=== PATIENT | female | born 2000 | race Caucasian/White ===

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

== ENCOUNTER 2021-01-05 09:37 | Outpatient (REF) | payer MEDICAID, SELFPAY | END 2021-01-05 09:38 | disposition home or self-care (01) | LOC: HO.LAB 09:37 | PROVIDERS: Visit Provider Internal Medicine | DX: Z20.822 Contact with and (suspected) exposure to COVID-19 (principal) | CPT/HCPCS: 36415; C9803; U0003; U0005 ==

== ENCOUNTER 2021-02-05 07:59 | Outpatient (REF) | payer OTHER, MEDICAID, SELFPAY ==
--- NOTE | ~2021-02-05 | CT_ITS ---
EXAMINATION: CT HEAD WITHOUT CONTRAST CLINICAL INFORMATION: Head injury COMPARISON: None TECHNIQUE: Contiguous axial imaging was performed from the skull base to vertex without intravenous administration of contrast. This CT examination was performed using dose optimization techniques as appropriate, variously including the following: *Automated exposure control *Adjustment of mA and/or kV according to patient size (this includes techniques or standardized protocols for targeted exams where dose is matched to indication/reason for exam; i.e. extremities or head) *Use of iterative reconstruction technique DLP: 610 mGy-cm FINDINGS: There is no evidence of acute intracranial hemorrhage or territorial infarction. No abnormal mass effect or midline shift is seen. Ac to white matter differentiation is well preserved. No extra-axial fluid collections are identified. The ventricles are normal in size. There is no abnormal attenuation within the brain parenchyma. The osseous structures and soft tissues are normal. The mastoid air cells and visualized portions of the paranasal sinuses are well aerated. CT/CT head/brain wo con IMPRESSION: Unremarkable exam.
== END 2021-02-05 08:00 | disposition home or self-care (01) ==
LOC: HO.CT 07:59
PROVIDERS: Visit Provider Emergency Medicine
DX: S09.90XA Unspecified injury of head, initial encounter (principal); V87.7XXA Person injured in collision between other specified motor vehicles (traffic), initial encounter
CPT/HCPCS: 70450

== ENCOUNTER 2021-05-18 09:28 | Outpatient (REF) | payer MEDICAID, SELFPAY ==
[2021-05-18 14:30] LABS: Glucose Urine UA NEG (NEG); Leukocyte Esterase Urine NEG (NEG); Nitrite Urine POS (NEG); Specific Gravity - Urine 1.025 (1.005-1.025); Urine Blood NEG (NEG); Urine Ketones NEG (NEG); Urine Protein NEG (NEG-TRACE)
[2021-05-18 14:44] LABS: Appearance Urine HAZY; Color Urine YELLOW
[2021-05-18 14:47] LABS: Bacteria Urine 3+ /LPF; RBC Urine 0-2 /HPF (0); Squamous Epithelial Cell Urine 2+ /LPF
[2021-05-19 02:42] LABS: CT PCR NOT DETECTED (Not Detect.); NG PCR NOT DETECTED (Not Detect.)
[2021-05-19 08:14] LABS: Syphilis Screen Nonreactive (Nonreactive)
[2021-05-19 08:17] LABS: HIV AB/AG Nonreactive (Nonreactive); HIV Num 1 0.06 S/CO (0.00-0.99); Hepatitis B Surface Antigen Negative (Negative)
[2021-05-19 08:34] LABS: ~HepC Num1 0.08 S/CO (0.00-0.79); ~Hepatitis C Antibody Nonreactive (Nonreactive)
[2021-05-19 08:39] LABS: BV Int Neg Control Negative (Negative); BV Int Pos Control Positive (Positive)
== END 2021-05-18 09:29 | disposition home or self-care (01) ==
LOC: HO.LAB 09:28
PROVIDERS: Visit Provider Advanced Practice Midwife
DX: Z01.411 Encounter for gynecological examination (general) (routine) with abnormal findings (principal); Z01.84 Encounter for antibody response examination; Z11.4 Encounter for screening for human immunodeficiency virus [HIV]; Z11.3 Encounter for screening for infections with a predominantly sexual mode of transmission; R10.2 Pelvic and perineal pain; Z20.2 Contact with and (suspected) exposure to infections with a predominantly sexual mode of transmission; R30.0 Dysuria; Z97.5 Presence of (intrauterine) contraceptive device
CPT/HCPCS: 36415; 81001; 81025; 86780; 86803; 87086; 87088; 87186; 87340; 87389; 87480; 87491; 87510; 87591; 87660

== ENCOUNTER → 2021-06-10 09:54 | Outpatient (BNVA) | payer OTHER, SELFPAY | PROVIDERS: Visit Provider Advanced Practice Midwife | DX: Z97.5 Presence of (intrauterine) contraceptive device (principal) | CPT/HCPCS: 99212 ==

== ENCOUNTER → 2021-07-06 10:40 | Outpatient (BNVA) | payer MEDICAID, SELFPAY | PROVIDERS: Visit Provider Advanced Practice Midwife ==

== ENCOUNTER → 2021-08-05 14:44 | Outpatient (BNVA) | payer MEDICAID, SELFPAY | PROVIDERS: Visit Provider Obstetrics & Gynecology ==

== ENCOUNTER → 2021-09-09 09:51 | Outpatient (BNVA) | payer OTHER, MEDICAID, SELFPAY | PROVIDERS: Visit Provider Obstetrics & Gynecology | DX: Z30.46 Encounter for surveillance of implantable subdermal contraceptive (principal) | CPT/HCPCS: 11981; 11982; 11983; J7307 ==

== ENCOUNTER 2021-10-19 10:31 | Emergency (ER) | payer MEDICAID, SELFPAY | END 2021-10-19 12:21 | disposition left against medical advice (07) | PROVIDERS: Emergency Provider Emergency Medicine | DX: R10.2 Pelvic and perineal pain (principal) ==

== ENCOUNTER → 2022-09-14 10:31 | Outpatient (BNVA) | payer OTHER, MEDICAID, SELFPAY | PROVIDERS: Visit Provider Advanced Practice Midwife | DX: N92.1 Excessive and frequent menstruation with irregular cycle (principal); N39.0 Urinary tract infection, site not specified; Z97.5 Presence of (intrauterine) contraceptive device | CPT/HCPCS: 81025 ==

== ENCOUNTER 2023-05-11 11:43 | Outpatient (AMB) | payer OTHER, MEDICAID, SELFPAY ==
[2023-05-11 11:44] VITALS: BP 110/70; BMI 22.2
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
== END 2023-05-11 12:20 | disposition home or self-care (01) ==
LOC: HO.HWS 11:43
PROVIDERS: Visit Provider Advanced Practice Midwife
DX: Z01.419 Encounter for gynecological examination (general) (routine) without abnormal findings (principal); Z97.5 Presence of (intrauterine) contraceptive device; Z20.2 Contact with and (suspected) exposure to infections with a predominantly sexual mode of transmission
CPT/HCPCS: 99395

== ENCOUNTER 2023-05-11 11:43 | Outpatient (REF) | payer OTHER, MEDICAID, SELFPAY | END 2023-05-11 11:44 | disposition home or self-care (01) | LOC: HO.LNP 11:43 | PROVIDERS: Visit Provider Advanced Practice Midwife | DX: Z01.419 Encounter for gynecological examination (general) (routine) without abnormal findings (principal); Z20.2 Contact with and (suspected) exposure to infections with a predominantly sexual mode of transmission; Z97.5 Presence of (intrauterine) contraceptive device | CPT/HCPCS: 88142 ==

== ENCOUNTER 2023-05-11 13:15 | Outpatient (REF) | payer OTHER, MEDICAID, SELFPAY ==
[2023-05-11 16:40] LABS: CT PCR NOT DETECTED (Not Detect.); NG PCR NOT DETECTED (Not Detect.)
[2023-05-12 05:27] LABS: HBsAGNum1 0.33 S/CO (0.00-0.99); HIV AB/AG Nonreactive (Nonreactive); HIV Num 1 0.07 S/CO (0.00-0.99); Hepatitis B Surface Antigen Negative (Negative); ~HepC Num1 0.06 S/CO (0.00-0.79); ~Hepatitis C Antibody Nonreactive (Nonreactive)
[2023-05-12 12:09] LABS: Syphilis Screen Nonreactive (Nonreactive)
[2023-05-12 12:45] LABS: BV Int Neg Control Negative (Negative); BV Int Pos Control Positive (Positive)
== END 2023-05-11 13:16 | disposition home or self-care (01) ==
LOC: HO.LAB 13:15
PROVIDERS: PCP Internal Medicine; Visit Provider Advanced Practice Midwife
DX: Z01.419 Encounter for gynecological examination (general) (routine) without abnormal findings (principal); Z20.2 Contact with and (suspected) exposure to infections with a predominantly sexual mode of transmission
CPT/HCPCS: 0353U; 86780; 86803; 87340; 87389; 87480; 87510; 87660

== ENCOUNTER 2023-06-29 09:21 | Outpatient (AMB) | payer OTHER, MEDICAID, SELFPAY ==
--- NOTE | 2023-06-29 09:22 | A.OFFVIS_ITS ---
Intake Vital Signs 06/29/23 09:25 Height 5 ft 6 in Weight 135 lb BMI 21.8 BP 110/70 Intake Visit Reasons: URGENT CARE FOLLOW UP Information Interpreted: non-clinical & clinical Allergies No Known Allergies [No Known Allergies*] Allergy (Verified 06/29/23 09:31) Medication List - Last Reconciled 06/29/23 by Marjorie Montalvo CNM etonogestrel (Nexplanon) subdermal Is last menstrual period known: No Post menopausal: No Patient : No HPI URGENT CARE FOLLOW UP HPI0 Details Patient was here in April for her Pap in annual. She has a Nexplanon for 2 years she will get it replaced next year. She had a sore throat and she also had some vaginal discharge and discomfort and itching at the beginning of May so she went to urgent care. They found strep throat and they also did cultures the only thing that came back for the vaginal cultures was bacterial vaginosis so they treated her with the gel. Then she got her. And she called them back and they gave her the metronidazole pills. She had some continued often on vaginal itching and discomfort though denies order and while waiting for this appointment she used them metronidazole gel that she had been given she last use that on Monday. Additionally previous to going to the urgent care she had looked up her symptoms and thought it was yeast so she got Monistat 1 which she used but that was before the Augmentin for her strep throat PFSH Medical History Gastritis Surgical History H/O right wrist surgery Hx of appendectomy Family History Mother No problems noted. Father No problems noted. Sister No problems noted. Maternal Grandfather Cancer Social History Household Members: Family Household Members Other:: father, paternal uncle, paternal uncle's spouse Housing: House Do you presently have visiting nurse or other home services: No Alcohol intake: never Patient Tobacco Use Status: Never used Tobacco Patient : No service: No Current occupational status: employed Sexual orientation: Straight/Heterosexual Gender identity: Female Female Reproductive History Menstrual Age of Menarche: 15 control method: implanted Total pregnancies: 0 Physical Exam Vital Signs: Last Vital Signs BP 110/70 06/29/23 09:25 BMI result Body Mass Index 21.8 Other: External within normal limits vagina is slightly reddened and inflamed there is a small amount of white discharge that could be consistent with left over Monistat or other cream. Cervix is nulliparous External Female Exam: normal external appearance and normal appearance of the urethra Speculum Exam - Vagina: normal appearance of the vagina and normal vaginal discharge Speculum Exam - Cervix: normal appearance of the cervix and Cervical os closed Assessment & Plan Assessment & Plan (1) Nexplanon in place: Code(s): Z97.5 - Presence of (intrauterine) contraceptive device (2) Vaginal discharge: Comment: See notes- status post treatment for both yeast and BV. Testing re done Code(s): N89.8 - Other specified noninflammatory disorders of vagina Plan Much of the visit spent trying to tease out what she had done 1st and what was done in what order in terms of testing treatment and symptoms. Today she says she is not that bad just occasionally a little itchy. Vagina is somewhat reddened and inflamed. Given the conflicting symptoms will await testing results since tomorrow is Monday I instructed the patient to call tomorrow morning to find out the results so that she does not have to wait all weekend and risk having to go to urgent care again for now I recommend she not use panty liners and we both looked at the labels on her on these which say 95% cotton 5% Spandex however she is also wearing a body suit top that is more Spandex over that as well discussed allowing air to the vagina and night. She inquired about safer sex which are recommended all times however she is having any symptoms of itching she should wait until she is feeling completely better because intercourse is essentially scratching. Additionally if she gets a bad odor after having intercourse with her partner she should also use condoms. Orders: Orders Bacterial Vaginosis Panel Today N89.8 - Other specified noninflammatory disorders of vagina CT NG by PCR Today N89.8 - Other specified noninflammatory disorders of vagina Coding Level of Care Code Est Pt Level 3 (92933) Diagnoses Nexplanon in place Z97.5 Vaginal discharge N89.8
[2023-06-29 09:25] VITALS: BP 110/70; BMI 21.8
== END 2023-06-29 10:03 | disposition home or self-care (01) ==
PROVIDERS: PCP Internal Medicine; Visit Provider Advanced Practice Midwife
DX: Z97.5 Presence of (intrauterine) contraceptive device (principal); N89.8 Other specified noninflammatory disorders of vagina
CPT/HCPCS: 99213

== ENCOUNTER 2023-06-29 09:21 | Outpatient (REF) | payer OTHER, MEDICAID, SELFPAY ==
[2023-06-30 09:36] LABS: CT PCR NOT DETECTED (Not Detect.); NG PCR NOT DETECTED (Not Detect.)
[2023-06-30 12:06] LABS: BV Int Neg Control Negative (Negative); BV Int Pos Control Positive (Positive)
== END 2023-06-29 09:22 | disposition home or self-care (01) ==
LOC: HO.LNP 09:21
PROVIDERS: PCP Internal Medicine; Visit Provider Advanced Practice Midwife
DX: N89.8 Other specified noninflammatory disorders of vagina (principal); Z97.5 Presence of (intrauterine) contraceptive device
CPT/HCPCS: 0353U; 87480; 87510; 87660

== ENCOUNTER 2023-11-20 08:59 | Outpatient (AMB) | payer OTHER, SELFPAY ==
[2023-11-20 09:09] VITALS: BMI 23.1
--- NOTE | 2023-11-20 09:09 | MHC.OFFVIS ---
Intake Vital Signs 11/20/23 09:09 Height 5 ft 6 in Weight 143 lb BMI 23.1 Intake Visit Reasons: irregular menses Intake Note: was bleeding off and on from September to now she states it would stop and she would have brown discharge and then she would start bleeding again. 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 She has a Nexplanon and she likes it for the most part she does not remember when it was put in. She says she had a little bit of bleeding in the past with this method and then it went away but this went on for a long time and it was regular bleeding like a period and then it was brown and then it would start up again. Research into the chart found that this was the 2nd Nexplanon that she has and it was inserted/replaced 09/09/[address] Barr. The patient had for gotten that this was her 2nd 1 we discussed other methods that she might possibly use and she actually likes this 1 even with the irregular bleeding. She would also like an STI check today. She would like to replace this Nexplanon with another 1 when the time comes. [facility] Medical History Gastritis Surgical History Hx of appendectomy H/O right wrist surgery Family History (Updated 11/20/23 @ 09:15 by BRENNA Mills) Mother No problems noted. Father No problems noted. Sister No problems noted. Maternal Grandfather Cancer Paternal Grandmother Ovarian cancer Social History Household Members: Family Household Members Other:: father, paternal uncle, paternal uncle's spouse Housing: House Do you presently have visiting nurse or other home services: No Alcohol intake: never Comment: sleeping Patient Tobacco Use Status: Never used Tobacco service: No Current occupational status: employed Sexual orientation: Straight/Heterosexual Gender identity: Female Female Reproductive History Menstrual Age of Menarche: 15 control method: implanted Total pregnancies: 0 Date of last pap smear: 05/15/23 (negative) Physical Exam Vital Signs: BMI result Body Mass Index 23.1 Other: Completely normal speculum exam vagina pink and moist cervix small pink nulliparous tightly closed normal scant clear discharge today. Bimanual deferred as not necessary. External Female Exam: normal external appearance and normal appearance of the urethra Speculum Exam - Vagina: normal appearance of the vagina and normal vaginal discharge Speculum Exam - Cervix: normal appearance of the cervix and Cervical os closed Assessment & Plan Assessment & Plan (1) Potential exposure to STD: Code(s): Z20.2 - Contact with and (suspected) exposure to infections with a predominantly sexual mode of transmission Plan Patient is here to discuss the irregular bleeding she had most of September. She has a Nexplanon and she likes it for the most part she does not remember when it was put in. She says she had a little bit of bleeding in the past with this method and then it went away but this went on for a long time and it was regular bleeding like a period and then it was brown and then it would start up again. Research into the chart found that this was the 2nd Nexplanon that she has and it was inserted/replaced 09/09/[address] Barr. The patient had for gotten that this was her 2nd 1 we discussed other methods that she might possibly use and she actually likes this 1 even with the irregular bleeding. She would also like an STI check today. She would like to replace this Nexplanon with another 1 when the time comes. Discussed alternative methods to the Nexplanon and decision making issues around that she said she did try for an IUD before but she could not tolerate the insertion attempt so that was abandoned. Discussed that her cervix was very small nulliparous and tightly closed and if she ever did decide for an IUD it should only be attempted to be inserted with her menses. Also discussed her other symptoms sometime she feels little cramps abdominally discussed that her system is not entirely shut down and that she will feel some symptoms related to some level of continued ovarian and uterine function. On balance she likes the Nexplanon and would want to replace it when it comes do I recommended that she plan on re insertion replacement in August of 2024 this fall and that she come to sign in insurance paper couple of months ahead of time so it is ordered in time. She wants testing for STIs in the blood work orders have been placed. Also we discussed what would happen if she had some prolonged breakthrough bleeding again and that it would probably not be anything to worry about however if it was extremely annoying to her and she wanted to make it. We could try a short course of oral contraceptives to help stop the bleeding perhaps for just a week, but I am not ordering those today she could call if that was the situation and there was nothing else going on. Orders: Orders Hepatitis B Surface Antigen Today Z20.2 - Contact with and (suspected) exposure to infections with a predominantly sexual mode of transmission Bacterial Vaginosis Panel Today Z20.2 - Contact with and (suspected) exposure to infections with a predominantly sexual mode of transmission Hepatitis C Antibody Today Z20.2 - Contact with and (suspected) exposure to infections with a predominantly sexual mode of transmission HIV Ab/Ag Today Z20.2 - Contact with and (suspected) exposure to infections with a predominantly sexual mode of transmission Syphilis Screen Today Z20.2 - Contact with and (suspected) exposure to infections with a predominantly sexual mode of transmission CT NG by PCR Today Z20.2 - Contact with and (suspected) exposure to infections with a predominantly sexual mode of transmission Coding Level of Care Code Est Pt Level 3 (98344) Diagnoses Potential exposure to STD Z20.2
== END 2023-11-20 10:05 | disposition home or self-care (01) ==
LOC: HO.HWSM 08:59
PROVIDERS: PCP Internal Medicine; Visit Provider Advanced Practice Midwife
DX: Z20.2 Contact with and (suspected) exposure to infections with a predominantly sexual mode of transmission (principal)
CPT/HCPCS: 99213

== ENCOUNTER 2023-11-20 08:59 | Outpatient (REF) | payer OTHER, SELFPAY ==
[2023-11-21 12:31] LABS: BV Int Neg Control Negative (Negative); BV Int Pos Control Positive (Positive)
== END 2023-11-20 09:00 | disposition home or self-care (01) ==
LOC: HO.LNP 08:59
PROVIDERS: PCP Internal Medicine; Visit Provider Advanced Practice Midwife
DX: Z20.2 Contact with and (suspected) exposure to infections with a predominantly sexual mode of transmission (principal)
CPT/HCPCS: 87480; 87510; 87660

== ENCOUNTER 2023-11-20 10:01 | Outpatient (REF) | payer OTHER, SELFPAY ==
[2023-11-20 12:32] LABS: HBsAGNum1 0.32 S/CO (0.00-0.99); HIV AB/AG Nonreactive (Nonreactive); HIV Num 1 0.06 S/CO (0.00-0.99); Hepatitis B Surface Antigen Negative (Negative); Syphilis Screen Nonreactive (Nonreactive); ~HepC Num1 0.05 S/CO (0.00-0.79); ~Hepatitis C Antibody Nonreactive (Nonreactive)
[2023-11-20 18:43] LABS: CT PCR NOT DETECTED (Not Detect.); NG PCR NOT DETECTED (Not Detect.)
== END 2023-11-20 10:02 | disposition home or self-care (01) ==
LOC: HO.HHCL 10:01
PROVIDERS: Visit Provider Advanced Practice Midwife
DX: Z11.4 Encounter for screening for human immunodeficiency virus [HIV] (principal); Z20.2 Contact with and (suspected) exposure to infections with a predominantly sexual mode of transmission
CPT/HCPCS: 0353U; 86780; 86803; 87340; 87389

== ENCOUNTER 2023-12-19 08:59 | Outpatient (AMB) | payer OTHER, SELFPAY ==
[2023-12-19 08:59] VITALS: BP 106/60; BMI 23.2
--- NOTE | 2023-12-19 08:59 | A.OFFVIS_ITS ---
Intake Vital Signs 12/19/23 08:59 Height 5 ft 6 in Weight 144 lb BMI 23.2 BP 106/60 Intake Visit Reasons: Vag irritation Out Patient Therapist Required: No Information Interpreted: clinical only Change Booth Attendant: Change Booth Attendant Present Allergies No Known Allergies [No Known Allergies*] Allergy (Verified 12/19/23 09:00) Medication List - Last Reconciled 12/19/23 by Marjorie Montalvo CNM etonogestrel (Nexplanon) subdermal Is last menstrual period known: No (irregular period(Nexplanon)) Do you need a note to return to daycare/school/sports/work: No HPI Vag irritation HPI Details Patient is here because she started with a new partner about a month ago and she has been noticing a very fishy odor that bothers her and does get worse after intercourse. She has no discharge that is bothering her she has not had anymore breakthrough bleeding on the Nexplanon. [facility] Medical History Gastritis Surgical History Hx of appendectomy H/O right wrist surgery Family History Mother No problems noted. Father No problems noted. Sister No problems noted. Maternal Grandfather Cancer Paternal Grandmother Ovarian cancer Social History Household Members: Family Household Members Other:: father, paternal uncle, paternal uncle's spouse Housing: House Do you presently have visiting nurse or other home services: No Alcohol intake: never Comment: sleeping Patient Tobacco Use Status: Never used Tobacco service: No Current occupational status: employed Sexual orientation: Straight/Heterosexual Gender identity: Female Female Reproductive History Menstrual Age of Menarche: 15 Duration of menses: 3-5 days control method: implanted Total pregnancies: 0 Date of last pap smear: 05/15/23 (Negative) History of abnormal pap smear: No Physical Exam Vital Signs: Last Vital Signs BP 106/60 12/19/23 08:59 BMI result Body Mass Index 23.2 External Female Exam: normal external appearance and normal appearance of the urethra Speculum Exam - Vagina: normal appearance of the vagina and normal vaginal discharge Speculum Exam - Cervix: normal appearance of the cervix and Cervical os closed Assessment & Plan Assessment & Plan (1) Vaginal discharge: Comment: See notes- status post treatment for both yeast and BV. Testing re done,12/19/23. Normal discharge, see teaching re BV, Code(s): N89.8 - Other specified noninflammatory disorders of vagina (2) Nexplanon in place: Code(s): Z97.5 - Presence of (intrauterine) contraceptive device (3) Potential exposure to STD: Code(s): Z20.2 - Contact with and (suspected) exposure to infections with a predominantly sexual mode of transmission (4) Vaginal odor: Code(s): N89.8 - Other specified noninflammatory disorders of vagina Plan Testing done for gonorrhea chlamydia trichomoniasis Gardnerella and Rachelle. Reviewed that the last time she was tested all of her tests were negative also reviewed her past history with BV presenting and previous treatments with both metronidazole pills and metronidazole gel. Also reviewed that the presence of a new sexual relationship can often be a factor in this and strongly recommend condoms and explained why. Also discussed options of occasional treatment boric acid capsules. Recommend condoms most of all. I also recommend consideration of retesting for HIV hep B hep C and syphilis as this is a new sexual relationship. ---Discussed the current research around the phenomena of bacterial vaginosis, and the many factors involved in the increase and change in the prevalence of certain bacteria in the vagina, that contribute to the clingy discharge, the fishy malodor, and the discomfort, that many women experience very frequently in their lives. Discussed the many factors that can promote it, and current thinking about best options for treatment of both the a 1 time episode, or frequently occurring episodes. Discussed the role of partner condom use. Discussed that previously, treatment was recommended for both partners, but is not currently recommended today in 2020. Discussed the testing involved. Discussed treatment options including Flagyl, metronidazole gel, boric acid capsules and others. Her Nexplanon is up for replacement in the early so she may come to either office and signed the consent form which will be forwarded to me so that I can sign it and order her next Nexplanon which she is sure at this point she would want. I will send a prescription for Metrogel to her pharmacy [facility] pharmacy and she may use it now and may use refills as she sees fit but I do not recommend frequent use better to prevent with condoms Orders: Orders Hepatitis C Antibody Today N89.8 - Other specified noninflammatory disorders of vagina, Z20.2 - Contact with and (suspected) exposure to infections with a predominantly sexual mode of transmission, Z97.5 - Presence of (intrauterine) contraceptive device Syphilis Screen Today N89.8 - Other specified noninflammatory disorders of vagina, Z20.2 - Contact with and (suspected) exposure to infections with a predominantly sexual mode of transmission, Z97.5 - Presence of (intrauterine) contraceptive device Hepatitis B Surface Antigen Today N89.8 - Other specified noninflammatory disorders of vagina, Z20.2 - Contact with and (suspected) exposure to infections with a predominantly sexual mode of transmission, Z97.5 - Presence of (intrauterine) contraceptive device HIV Ab/Ag Today N89.8 - Other specified noninflammatory disorders of vagina, Z20.2 - Contact with and (suspected) exposure to infections with a predominantly sexual mode of transmission, Z97.5 - Presence of (intrauterine) contraceptive device Medications: New metronidazole 0.75%(37.5mg/5gram) Use when necessary for symptoms of bacterial vaginosis. 1 appful vaginal BID 70 grams 2RF 5 days Coding Level of Care Code Est Pt Level 3 (80691) Diagnoses Vaginal discharge N89.[address] Z97.5 Potential exposure to STD Z20.2 Vaginal odor N89.8
== END 2023-12-19 10:05 | disposition home or self-care (01) ==
LOC: HO.HWSM 08:59
PROVIDERS: PCP Internal Medicine; Visit Provider Advanced Practice Midwife
DX: N89.8 Other specified noninflammatory disorders of vagina (principal); Z97.5 Presence of (intrauterine) contraceptive device; Z20.2 Contact with and (suspected) exposure to infections with a predominantly sexual mode of transmission
CPT/HCPCS: 99213

== ENCOUNTER 2023-12-19 08:59 | Outpatient (REF) | payer OTHER, SELFPAY ==
[2023-12-20 03:08] LABS: CT PCR NOT DETECTED (Not Detect.); NG PCR NOT DETECTED (Not Detect.)
[2023-12-20 09:18] LABS: BV Int Neg Control Negative (Negative); BV Int Pos Control Positive (Positive)
== END 2023-12-19 09:00 | disposition home or self-care (01) ==
LOC: HO.LAB 08:59
PROVIDERS: PCP Internal Medicine; Visit Provider Advanced Practice Midwife
DX: Z01.419 Encounter for gynecological examination (general) (routine) without abnormal findings (principal); Z20.2 Contact with and (suspected) exposure to infections with a predominantly sexual mode of transmission
CPT/HCPCS: 0353U; 87480; 87510; 87660

== ENCOUNTER 2023-12-19 09:49 | Outpatient (REF) | payer OTHER, SELFPAY ==
[2023-12-19 12:02] LABS: HIV AB/AG Nonreactive (Nonreactive); HIV Num 1 0.05 S/CO (0.00-0.99); ~HepC Num1 0.07 S/CO (0.00-0.79); ~Hepatitis C Antibody Nonreactive (Nonreactive)
[2023-12-19 12:04] LABS: Syphilis Screen Nonreactive (Nonreactive)
== END 2023-12-19 09:50 | disposition home or self-care (01) ==
LOC: HO.HHCL 09:49
PROVIDERS: Visit Provider Advanced Practice Midwife
DX: Z11.4 Encounter for screening for human immunodeficiency virus [HIV] (principal); N89.8 Other specified noninflammatory disorders of vagina; Z20.2 Contact with and (suspected) exposure to infections with a predominantly sexual mode of transmission; Z97.5 Presence of (intrauterine) contraceptive device
CPT/HCPCS: 36415; 86780; 86803; 87389

== ENCOUNTER 2024-03-12 13:21 | Outpatient (AMB) | payer OTHER, SELFPAY ==
--- NOTE | 2024-03-12 13:24 | MHC.OFFVIS ---
Vital Signs 03/12/24 13:38 Height 5 ft 6 in Weight 146 lb BMI 23.6 BP 118/72 Intake Visit Reasons: ? vaginal odor Indirect Sales Exec Required: No Information Interpreted: clinical only Computer Applications Developer: Computer Applications Developer Present Allergies No Known Allergies [No Known Allergies*] Allergy (Verified 03/12/24 13:39) Medication List - Last Reconciled 03/12/24 by Marjorie Montalvo CNM etonogestrel (Nexplanon) subdermal Is last menstrual period known: No (nexplanon) Do you need a note to return to daycare/school/sports/work: No HPI HPI ? vaginal odor: Details: Patient is here because she has not terrible vaginal odor that has been bothering her for about 2-3 weeks her last period was 2 months ago she feels like it has an odor that she is never smelled before. She has not having pain or any other symptoms or abnormal discharge in any other way or itching. She is happy with the Nexplanon. [facility] Medical History Gastritis Surgical History Hx of appendectomy H/O right wrist surgery Family History Mother No problems noted. Father No problems noted. Sister No problems noted. Maternal Grandfather Cancer Paternal Grandmother Ovarian cancer Social History Household Members: Family Household Members Other:: father, paternal uncle, paternal uncle's spouse Housing: House Do you presently have visiting nurse or other home services: No Alcohol intake: never Comment: sleeping Patient Tobacco Use Status: Never used Tobacco service: No Current occupational status: employed Sexual orientation: Straight/Heterosexual Gender identity: Female Female Reproductive History Menstrual Age of Menarche: 15 Duration of menses: 3-5 days control method: implanted Total pregnancies: 0 Date of last pap smear: 05/15/23 (negative) History of abnormal pap smear: No Physical Exam Vital Signs: Last Vital Signs BP 118/72 03/12/24 13:38 BMI result Body Mass Index 23.6 Other: Discharge is thin white slightly bubbly but not very cervix nulliparous pink. Slight odor detected through mask. External Female Exam: normal external appearance and normal appearance of the urethra Speculum Exam - Vagina: normal appearance of the vagina and normal vaginal discharge Speculum Exam - Cervix: normal appearance of the cervix and Cervical os closed Assessment & Plan Assessment & Plan (1) Vaginal odor: Code(s): N89.8 - Other specified noninflammatory disorders of vagina Category: Medical (2) Nexplanon in place: Code(s): Z97.5 - Presence of (intrauterine) contraceptive device Category: Social Hx (3) Encounter for screening examination for sexually transmitted disease: Code(s): Z11.3 - Encounter for screening for infections with a predominantly sexual mode of transmission Category: Medical Plan Will await the testing for the swabs for gonorrhea chlamydia trichomoniasis Gardnerella and Rachelle Rachelle would not present with an odor but any of the other entities might. I asked the patient to call and if she has not heard any results by Monday so that she is sure to get her results in time. Nothing is completely evident in appearance so will wait testing. Coding Level of Care Code Est Pt Level 3 (92187) Diagnoses Vaginal odor N89.[address] Z97.5 Encounter for screening examination for sexually transmitted disease Z11.3
[2024-03-12 13:38] VITALS: BP 118/72; BMI 23.6
== END 2024-03-12 14:23 | disposition home or self-care (01) ==
PROVIDERS: PCP Internal Medicine; Visit Provider Advanced Practice Midwife
DX: N89.8 Other specified noninflammatory disorders of vagina (principal); Z97.5 Presence of (intrauterine) contraceptive device; Z11.3 Encounter for screening for infections with a predominantly sexual mode of transmission
CPT/HCPCS: 99213

== ENCOUNTER 2024-03-12 13:21 | Outpatient (REF) | payer OTHER, SELFPAY ==
[2024-03-13 11:21] LABS: Bacterial Vaginosis PCR POSITIVE (Negative); Candida Group PCR NOT DETECTED (Not Detect); Candida glab krusei PCR NOT DETECTED (Not Detect); Trichomonas vaginalis PCR NOT DETECTED (Not Detect)
[2024-03-13 11:41] LABS: CT PCR NOT DETECTED (Not Detect.); NG PCR NOT DETECTED (Not Detect.)
== END 2024-03-12 13:22 | disposition home or self-care (01) ==
LOC: HO.LAB 13:21
PROVIDERS: PCP Internal Medicine; Visit Provider Advanced Practice Midwife
DX: Z01.419 Encounter for gynecological examination (general) (routine) without abnormal findings (principal); N89.8 Other specified noninflammatory disorders of vagina; Z11.3 Encounter for screening for infections with a predominantly sexual mode of transmission; Z20.2 Contact with and (suspected) exposure to infections with a predominantly sexual mode of transmission; Z97.5 Presence of (intrauterine) contraceptive device
CPT/HCPCS: 0352U; 0353U; 99212

== ENCOUNTER 2024-06-07 14:46 | Outpatient (REF) | payer OTHER, SELFPAY ==
[2024-06-08 02:27] LABS: CT PCR NOT DETECTED (Not Detect.); NG PCR NOT DETECTED (Not Detect.)
[2024-06-08 11:28] LABS: Bacterial Vaginosis PCR POSITIVE (Negative); Candida Group PCR NOT DETECTED (Not Detect); Candida glab krusei PCR NOT DETECTED (Not Detect); Trichomonas vaginalis PCR NOT DETECTED (Not Detect)
== END 2024-06-07 14:47 | disposition home or self-care (01) ==
LOC: HO.LAB 14:46
PROVIDERS: PCP Family Medicine; Visit Provider Advanced Practice Midwife
DX: N89.8 Other specified noninflammatory disorders of vagina (principal); Z20.2 Contact with and (suspected) exposure to infections with a predominantly sexual mode of transmission; Z11.3 Encounter for screening for infections with a predominantly sexual mode of transmission; Z30.9 Encounter for contraceptive management, unspecified; Z97.5 Presence of (intrauterine) contraceptive device; Z12.4 Encounter for screening for malignant neoplasm of cervix; Z01.419 Encounter for gynecological examination (general) (routine) without abnormal findings
CPT/HCPCS: 0352U; 87491; 87591; 99395

== ENCOUNTER 2024-06-07 14:46 | Outpatient (AMB) | payer OTHER, SELFPAY ==
[2024-06-07 14:49] VITALS: BP 118/70; BMI 24.5
--- NOTE | 2024-06-07 14:49 | MHC.OFFVIS ---
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 She is not having any problems at all she is not having any issues with BV symptoms or anything. Her last Pap smear was last year so she is not due for Pap this year. She has a Nexplanon it is her 2nd 1. This 1 was replaced on 07/10/[address] Barr she remembers about replacement and has no questions about it she would like to have another 1 when this 1 expires she used to go to the [facility]. She says she got a call from them letting her know that her Nexplanon was up for renewal but that she has to get it replaced somewhere else as she was not technically a patient there anymore but she has made another appointment for a new primary care provider in September at the [facility] so she is set. She eats well she is not having any concerns about STDs other than getting the test today and she declines blood work for STIs She does not exercise at all. I recommend she consider getting into have it of exercise now as she is young and healthy help keep her that way did review Kegel's she has good muscle tone. She signed the form for the Nexplanon removal and replacement and we will endeavor to replace it this fall. When the Nexplanon comes in I recommend she calls sometime in August when she gets a. If she is not getting regular periods again (she just started with a period recently so that was telling her that the Nexplanon was wearing off), then we should simply replace it when possible has close to August as possible. PFSH Medical History Gastritis Surgical History Hx of appendectomy H/O right wrist surgery Family History Mother No problems noted. Father No problems noted. Sister No problems noted. Maternal Grandfather Cancer Paternal Grandmother Ovarian cancer Social History Household Members: Family Household Members Other:: father, paternal uncle, paternal uncle's spouse Housing: House Do you presently have visiting nurse or other home services: No Alcohol intake: never Comment: sleeping Patient Tobacco Use Status: Never used Tobacco service: No Current occupational status: employed Sexual orientation: Straight/Heterosexual Gender identity: Female Female Reproductive History Menstrual Age of Menarche: 15 Duration of menses: 6-7 days Date of last menstrual period: 05/30/24 control method: implanted Full term: 0 Date of last pap smear: 05/15/23 (neg.) Physical Exam Vital Signs: Last Vital Signs BP 118/70 06/07/24 14:49 BMI result Body Mass Index 24.5 Const General: healthy appearing, comfortable, no acute distress, well developed and alert Nutritional Appearance: average body habitus Orientation/consciousness: patient oriented x3 Limitations: no limitations HEENT Head: Yes normocephalic Neck Neck: Yes normal visual inspection Thyroid: Thyroid normal Chest Chest palpation & inspection: normal inspection of the chest Breast/axilla inspection: normal inspection of the breasts and normal inspection of the axillae Breast/axilla palpation: normal palpation of the breasts and normal palpation of the axillae Resp Effort & Inspection: normal respiratory effort GI Inspection: Yes normal to inspection, No Abdominal wall edema and No distended Palpation (GI): Soft to palpation and nontender Other: External exam within normal limits vagina pink and moist cervix nulliparous pink smooth small mobile nontender uterus midposition mobile nontender adnexa nontender good tone with Kegel. General: Yes bladder normal to palpation External Female Exam: normal external appearance and normal appearance of the urethra Speculum Exam - Vagina: normal appearance of the vagina, normal palpation and normal vaginal discharge Speculum Exam - Cervix: normal appearance of the cervix, normal palpation and nontender Bimanual exam- vagina & uterus: normal bimanual exam, normal palpation, uterine size normal, bladder normal to palpation, consistency normal, normal palpation, uterine mobility normal, uterine shape normal, No Cervical tenderness present, non-tender and no cervical motion tenderness Bimanual Exam- Adnexa, other: normal adnexae, no masses, normal and No adnexal tenderness Neuro General: patient oriented x3 Assessment & Plan Assessment & Plan (1) Encounter for screening examination for sexually transmitted disease: Code(s): Z11.3 - Encounter for screening for infections with a predominantly sexual mode of transmission Category: Medical (2) Contraceptive management: Code(s): Z30.9 - Encounter for contraceptive management, unspecified Category: Medical (3) Nexplanon in place: Code(s): Z97.5 - Presence of (intrauterine) contraceptive device Category: Social Hx (4) Cervical cancer screening: Comment: ( pt to check her immunization records for gardisil; First Pap done 05/11/2023, = negative. Code(s): Z12.4 - Encounter for screening for malignant neoplasm of cervix Category: Medical (5) Well woman exam with routine gynecological exam: Code(s): Z01.419 - Encounter for gynecological examination (general) (routine) without abnormal findings Category: Medical Plan -----Discussed in this visit the following: healthy balanced diet, regular and consistent exercise, getting recommended health screens, doing the best she can for her particular health concerns, kegel exercises, pap smear screening and followup recommendations, mammography screening and SBE, normal changes in cycles in her life stage--- . She very much wants another Nexplanon. She signed the form for replacement. In her case because menses may not be regular it might be possible to replace it at any time however since she has started getting periods again which for her signal that it is time to replace it, it would be best to replace it with her. As then she will have a better chance of minimizing irregular bleeding in the future. I recommend trying to start a exercise program so she develops a good have it she is young and healthy and not overweight and has no issues now but these habits are lifelong in our best to start early. She will be meeting with her new PCC in September. Coding Level of Care Code Est Pt Prev Care 18-39y([id number]) Diagnoses Encounter for screening examination for sexually transmitted disease Z11.3 Contraceptive management Z30.[address] Z97.5 Cervical cancer screening Z12.4 Well woman exam with routine gynecological exam Z01.419
== END 2024-06-07 15:45 | disposition home or self-care (01) ==
PROVIDERS: PCP Family Medicine; Visit Provider Advanced Practice Midwife
DX: Z01.419 Encounter for gynecological examination (general) (routine) without abnormal findings (principal)
CPT/HCPCS: 99395

== ENCOUNTER 2024-09-06 12:45 | Outpatient (AMB) | payer BC, SELFPAY ==
--- NOTE | 2024-09-06 13:04 | MHC.OFFVIS ---
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 Information Interpreted: clinical only Retail Department Reset: Retail Department Reset Present Allergies No Known Allergies [No Known Allergies*] Allergy (Verified 09/06/24 13:07) Medication List - Last Reconciled 09/06/24 by Marjorie Montalvo CNM etonogestrel (Nexplanon) subdermal metronidazole 0.75%(37.5mg/5gram) 1 appful vaginal BEDTIME 5 days Is last menstrual period known: Yes Last menstrual period: 09/02/24 HPI HPI Removal/ Insertion Nexplanon/DO NOT RS: Details: Patient is here for removal of her Nexplanon and replacement with a new 1 she has had this procedure done before and she has been happy with the Nexplanon. She does not have any questions her period started on the 4th. She is however very nervous just thinking about the procedure and is anxious. She wants Her boyfriend to be in the room with her and support her through the process, and he did his best to distract her. [facility] Medical History Gastritis Surgical History Hx of appendectomy H/O right wrist surgery Family History Mother No problems noted. Father No problems noted. Sister No problems noted. Maternal Grandfather Cancer Paternal Grandmother Ovarian cancer Social History Household Members: Family Household Members Other:: father, paternal uncle, paternal uncle's spouse Housing: House Do you presently have visiting nurse or other home services: No Alcohol intake: never Comment: sleeping Patient Tobacco Use Status: Never used Tobacco service: No Current occupational status: employed Sexual orientation: Straight/Heterosexual Gender identity: Female Female Reproductive History Menstrual Age of Menarche: 15 Duration of menses: 3-5 days Date of last menstrual period: 09/02/24 control method: implanted Total pregnancies: 0 Physical Exam Vital Signs: Last Vital Signs BP 110/68 09/06/24 13:06 BMI result Body Mass Index 24.5 Office Procedures Contraception Insert/Removal Details Details: Nexplanon Removal/Reinsertion Insertion Procedure The patient was placed in a supine position with her non dominant hand resting under her head. The insertion site was located: 8-10cm from the medial epicondyle notch of the humerus, posterior to the sulcus, between the triceps and biceps muscle. The area of the previous implant was identified and the distal tip located. This area was cleansed with an alcohol prep and 3 ml of 2% Lidocaine on a 25 gauge needle and syringe was utilized for adequate anesthesia to the insertion site. After ascertaining adequate anesthesia, the area was prepped with Betadine solution. The skin over the distal tip was incised with a #11 blade scalpel and the capsule was located and entered freeing the implant from the canal. The implant was removed with a gentle tug using a mosquito clamp and removed intact. The Nexplanon device was removed from the manufacturers package and the implant was noted in the trocar canal. The trocar was inserted at a 30 degree angle and then lowered parallel to the skin for insertion into the subcutaneous space with counter traction. Direct pressure was applied to the insertion site for hemostasis, minimal bleeding was observed. Steri strips, Tegaderm covering, gauze pads, and Placido wrap dressing were secured with paper tape. The implant was palpable underneath the skin by myself and the patient. The patient tolerated the procedure well and left the office in good condition. She was supported throughout by her boyfriend. As in was slightly longer having needed to be extended to preop Nexplanon, recommend that she be pressure dressing the rest of the the Tegaderm Steri-Strips on for 4 days to ensure full closure of the incision. 21733 - Insertion and Removal Office Meds Nexplanon 68 mg subdermal implant Performing Provider: Marjorie Montalvo CNM [facility] [place] Administered by: Giovana Marte CMA on 09/06/24 14:14 Dose Route Admin Location Dispensed Lot Number Expiration Date [facility] [employer] 1 implant subdermal 1 ea [id number] 02/26/26 Results AMB Test Urine AMB Test Urine Negative Last Edit by Giovana Marte CMA on 09/06/24 14:18 Results Reviewed Results Reviewed: Laboratory Last Values [facility] Negative 09/06/24 14:17 Assessment & Plan Assessment & Plan (1) Encounter for removal and reinsertion of Nexplanon: Code(s): Z30.46 - Encounter for surveillance of implantable subdermal contraceptive Category: Medical (2) Contraceptive management: Code(s): Z30.9 - Encounter for contraceptive management, unspecified Category: Medical Plan Please see the procedure section for details of the removal replacement of her Nexplanon. It was a challenging. Was closed with pressure Steri-Strips closing incision and covered with Tegaderm pressure dressing. Patient to keep the pressure dressing on at least through the rest of the day, and consider keeping the Tegaderm in this case for perhaps 4 days to ensure full closure of the incision. Reviewed to seek care with the urgent care if any signs of infection increased bleeding or expulsion of the Nexplanon. Orders: Orders AMB Nexplanon/Implanon Insertion - Patient Supply Today Z30.46 - Encounter for surveillance of implantable subdermal contraceptive AMB HCG Urine Test Today Z32.02 - Encounter for test, result negative Coding Level of Care Code Est Pt Level 3 (57705) Diagnoses Encounter for removal and reinsertion of Nexplanon Z30.46 Contraceptive management Z30.9 CPT Codes Details - Contraception: 10115 - Insertion and Removal ([id number])
[2024-09-06 13:06] VITALS: BP 110/68; BMI 24.5
== END 2024-09-06 14:34 | disposition home or self-care (01) ==
PROVIDERS: PCP Family Medicine; Visit Provider Advanced Practice Midwife
DX: Z30.46 Encounter for surveillance of implantable subdermal contraceptive (principal); Z30.9 Encounter for contraceptive management, unspecified; Z32.02 Encounter for pregnancy test, result negative
CPT/HCPCS: 11983

== ENCOUNTER → 2024-09-06 12:45 | Outpatient (BNVA) | payer BC, SELFPAY | PROVIDERS: PCP Family Medicine; Visit Provider Advanced Practice Midwife | DX: Z30.46 Encounter for surveillance of implantable subdermal contraceptive (principal) | CPT/HCPCS: 11983; 81025; J7307 ==

== ENCOUNTER 2025-03-12 09:26 | Outpatient (AMB) | payer BC, SELFPAY ==
--- NOTE | 2025-03-12 09:27 | MHC.OFFVIS ---
Vital Signs 03/12/25 09:40 Height 5 ft 6 in Weight 165 lb BMI 26.6 BP 112/72 Intake Visit Reasons: Consultation Nexplanon removal Intake Note: Per patient has been having a lot of mood swings, angry a lot of the time. Has also noticed she's gaining weight since the inset of new Nexplanon, despite eating healthy and going to the gym. Interested in trying another BC method to see if that'll work. 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 She has previously like the Nexplanon and only had it replaced last fall. But since last fall she has found herself macias and anxious and depressed and has gained weight even though she goes to the gym and stays active and she has noticed decreased libido she is actually thinking possibly a going on pills but more likely she wants to go off hormonal methods. She does not want to have a baby at this particular time of her life, and may not want to. PFSH Medical History Gastritis Surgical History Hx of appendectomy H/O right wrist surgery Family History Mother No problems noted. Father No problems noted. Sister No problems noted. Maternal Grandfather Cancer Paternal Grandmother Ovarian cancer Social History Household Members: Family Household Members Other:: father, paternal uncle, paternal uncle's spouse Housing: House Do you presently have visiting nurse or other home services: No Alcohol intake: never Comment: sleeping Patient Tobacco Use Status: Never used Tobacco service: No Current occupational status: employed Sexual orientation: Straight/Heterosexual Gender identity: Female Female Reproductive History Menstrual Age of Menarche: 15 Total pregnancies: 0 Date of last pap smear: 05/11/23 (negative pap smear) History of abnormal pap smear: No History of STI: No Physical Exam Vital Signs: Last Vital Signs BP 112/72 03/12/25 09:40 BMI result Body Mass Index 26.6 Const Other: Left arm Nexplanon is palpable, feels deeper than when placed. Assessment & Plan Assessment & Plan (1) Nexplanon in place: Code(s): Z97.5 - Presence of (intrauterine) contraceptive device Category: Social Hx (2) Contraceptive management: Code(s): Z30.9 - Encounter for contraceptive management, unspecified Category: Medical (3) Weight gain: Code(s): R63.5 - Abnormal weight gain Category: Medical (4) control counseling: Code(s): Z30.09 - Encounter for other general counseling and advice on contraception Category: Medical Plan Patient is here to talk about getting her Nexplanon removed she is had 1 before she has been on hormonal control for a long time since she is 17. She has previously like the Nexplanon and only had it replaced last fall. But since last fall she has found herself macias and anxious and depressed and has gained weight even though she goes to the gym and stays active and she has noticed decreased libido she is actually thinking possibly a going on pills but more likely she wants to go off hormonal methods. She does not want to have a baby at this particular time of her life, and may not want to. I reviewed the Nexplanon because she has gained about 17 lb since this 1 was inserted it is deeper than expected. Discussed what she would do if she got she had to think for minute and is not sure discussed her options going on control pills versus other methods versus IUDs she had not wanted in the past discussed and nonhormonal IUDs as well as pills substitutes patches and rings also discussed Depo-Provera which has weight gain side effects to the Nexplanon. I offered prescribe pills for her that she could have ready to start when the Nexplanon is removed, but she really thinks she would rather go with nothing for a while to see how she feels so in that case I invited her to start using condoms weight now and become well practiced with using every single time discussed that the return to fertility would be variable. She is happy with this plan and we will see her when we can schedule removal. Asked her all stones a think about whether not she would want a plan B prescription for a just in case. Timeframe/Date Comment Schedule Nexplanon removal Coding Level of Care Code Est Pt Level 3 (04534) Diagnoses Nexplanon in place Z97.5 Contraceptive management Z30.9 Weight gain R63.5 control counseling Z30.09
[2025-03-12 09:40] VITALS: BP 112/72; BMI 26.6
--- OUTSIDE RECORDS SUMMARY | 2025-03-12 10:00 | XMS_ITS | Clinical Summary ---
Author Organization [employer] Address [address] [place] [address] [address] [place] [address] Care Team Providers Care Wood Pattern Maker Name Role Phone Unavailable Primary Care Provider Unavailabl e Medications ibuprofen 200 MG tablet 1-2 tablet by oral route every 6 to 8 hours prn fever or pain 8 Active medroxyPROGESTERo ne (Depo-Provera) 150 MG/ML suspension prefilled syringe injection syringe 150mg IM x 1 9 Active polyethylene glycol, PEG, 3350 (MiraLax) 17 GM/SCOOP powder 1 cupful in 6 oz juice, po once a day 9 Active silver sulfADIAZINE (Silvadene) 1 % cream Apply topically 2 times daily. to affected area 3 Active Social History Tobacco Use Types Packs/Day Years Used Date Smoking Tobacco: Never Assessed Housing Stability Answer Date Recorded What is your housing situation today? I have nikiadiana valadez 09/04/[address] you li ve. Do you have problems with any of the following? None of the above 09/04/2023 Food Insecurity Answer Date Recorded Within the past 12 months, y ou worried that your food would run out before you got money to buy more: Never True 09/04/2023 Within the past 12 months,th e food you bought just didn't last and you didn't have enough money to get more: Never True 03/2023 Transportation Answer Date Recorded In the past 12 months, has l ack of transportation kept you from medical appts, meetings, work or from getting things needed for daily living? No 09/04/2023 Utilities Answer Date Recorded In the past 12 months, has t he electric, gas, oil or water company threatened to shut off services in your home? No 09/04/2023 Comments Unknown Sex and Gender Information Value Date Recorded Sex Assigned at Female 08/29/2022 10:33 AM EDT Legal Sex Female 10:33 AM EDT Gender Identity Choose not to disclose 10:33 AM EDT Sexual Orientation Choose not to disclose 2021 10:33 AM EDT Last Filed Vital Signs Vital Sign Reading Time Taken Comments Blood Pressure 110/80 02/03/2021 12:04 AM EDT Pulse 87 02/03/2021 12:04 AM EDT Temperature - - Respiratory Rate - - Oxygen Saturation - - Inhaled Oxygen Concentration - - Weight 55.7 kg (122 lb 12.8 oz) 021 12:04 AM EDT Height 165.1 cm (5' 5 ) 02/03/2021 12:0 4 AM EDT Body Mass Index 20.43 02/03/2021 12:04 AM EDT Plan of Treatment Health Maintenance Due Date Last Done Comments Depression Screening 2001 Alcohol/Substance Use Screening 2013 Tobacco Screening 2013 Family Planning (PISQ) 2016 HPV Vaccines (1 - 3-dose series) 2016 Pap Smear 2022 SDOH Screening 04/28/2024 04/28/2023 COVID-19 Vaccine ( season) 2024 10/07/2021, 03/22/2021, 02/23/2021 Influenza Vaccine (#1) 2024 06/29/2022 Chlamydia and Gonorrhea Screening 03/12/2025 03/12/2024, 12/19/2023, 06/29/2023, Additional history exists DTaP/Tdap/Td Vaccines (7 - Td or Tdap) 01/03/2028 01/02/2018, 02/22/2007, 03/26/2003, Additional history exists Zoster Vaccines (1 of 2) 2051 RSV Patients and Patients Aged 60 years or older (1 - 1-dose 75+ series) 2076 Hepatitis B Vaccines Completed 03/20/2002, 2001, 2001 HIB Vaccines Completed 03/26/2003, 02/28, 01/18/2002, Additional history exists Pneumococcal Vaccine: Pediatrics (0 to 5 Years) and At-Risk Patients (6 to 49) Years) Completed 03/26/2003, 03/20/2002, 01/18/2002, Additional history exists IPV Vaccines Completed 02/22/2007, 02/28, 03/20/2002, Additional history exists HIV Screening Completed 05/11/2023 Hepatitis C Screening Completed 05/11/2023 Hepatitis A Vaccines Aged Out No long er eligible based on patient's age to complete this topic Meningococcal Vaccine Aged Out No serena maris eligible based on patient's age to complete this topic RSV under 20 months Aged Out No longe r eligible based on patient's age to complete this topic Rotavirus Vaccines Aged Out No longer eligible based on patient's age to complete this topic Procedures Procedure Name Priority Date/Time Associated Diagnosis Comments CHLAMYDIA/N. GONORRHOEAE RNA, TMA, UROGENITAL Routine 03/12/2024 12:00 AM EDT HEPATITIS C ANTIBODY Routine 05/11/2023 1:25 PM EDT HIV ANTIBODY/ANTIGEN ([facility]) Routine 05/11/2023 1:25 PM EDT from Last 3 Months or Most Recently Relevant to Health Maintenance Results * Chlamydia/N. Gonorrhoeae RNA, TMA, Urogenitial (03/12/2024 12:00 AM EDT) Pathologist [facility] PCR NOT DETECTED Not Detect. [facility] Comment:A not detected test result does not exclude the possibilityof infection because test results can be affected byimproper specimen collection, concurrent antibiotic therapy,or the number of organisms in the specimen which may bebelow the sensitivity of the test. As with many diagnostictests, results from the Xpert CT/NG assay should beinterpreted in conjunction with other laboratory andclinical data available to the clinician.Xpert CT/NG performance has not been evaluated in patientsless than 14 years of age. The assay should not be used forthe evaluationof suspected sexual abuse or for other medico-legalindications. Additional testing is recommended in anycircumstance when false positive or false negative resultscould lead to adverse medical, social or psychologicalconsequences. NG PCR NOT DETECTED Not Detect. [facility] Comment:A not detected test result does not exclude the possibilityof infection because test results can be affected byimproper specimen collection, concurrent antibiotic therapy,or the number of organisms in the specimen which may bebelow the sensitivity of the test. As with many diagnostictests, results from the Xpert CT/NG assay should beinterpreted in conjunction with other laboratory andclinical data available to the clinician.Xpert CT/NG performance has not been evaluated in patientsless than 14 years of age. The assay should not be used forthe evaluationof suspected sexual abuse or for other medico-legalindications. Additional testing is recommended in anycircumstance when false positive or false negative resultscould lead to adverse medical, social or psychologicalconsequences. 03/12/2024 03/12/2024 Narrative [facility] - 03/13/2024 11:41 AM EDT Vaginal [facility] External Data Provider LAB MICROBIOLOGY - GENERAL ORDERABLES Final Result Performing Organization Address [facility]/ZIP Co de Phone Number [facility] [address] [place] [phone] * Hepatitis C Ab (05/11/2023 1:25 PM EDT) Hepatitis C Antibody Nonreactive Nonreactive [facility] Comment:Antibodies to HCV no t detected; does not exclude early acuteHCV infection. 05/11/2023 1:25 PM EDT 05/11/2023 1:25 PM EDT [facility] External Provider LAB BLO OD ORDERABLES Final Result Performing Organization Address [facility] Co de Phone Number [facility] [address] [place] [phone] * HIV Ab/Ag ([facility]) (05/11/2023 1:25 PM EDT) HIV AB/AG Nonreactive Nonreactive [facility] Comment:HIV-1 p24 Ag and/or HIV-1/HIV-2 Ab not detected.A test result that is nonreactive does not exclude thepossibility of exposure to or infection with HIV-1 and/orHIV-2. Nonreactive results in this assay for individualswith prior exposure to HIV-1 and/or HIV-2 may be due toantigen and antibody levels that are below the limit ofdetection of this assay.[employer] [facility] [employer] HIV Ag/Ab Combo assay result andsupplemental assay results should be interpreted inconjunction with the patient's clinical presentation,history and other laboratory results. If the results areinconsistent with clinical evidence, additional testing issuggested to confirm the result. 05/11/2023 1:25 PM EDT 05/11/2023 1:25 PM EDT us [facility] External Provider LAB BLO OD ORDERABLES Final Result Performing Organization Address City/State/[facility] Co de Phone Number [facility] [address] [place] [address] [phone] from Last 3 Months or Most Recently Relevant to Health Maintenance Insurance [facility] STANDARD HS FULL
== END 2025-03-12 13:41 | disposition home or self-care (01) ==
LOC: HO.HWSM 09:26
PROVIDERS: PCP Family Medicine; Visit Provider Advanced Practice Midwife
DX: Z97.5 Presence of (intrauterine) contraceptive device (principal); Z30.9 Encounter for contraceptive management, unspecified; R63.5 Abnormal weight gain; Z30.09 Encounter for other general counseling and advice on contraception
CPT/HCPCS: 99213

== ENCOUNTER 2025-03-18 14:00 | Outpatient (AMB) | payer BC, SELFPAY ==
--- NOTE | 2025-03-18 14:17 | MHC.OFFVIS ---
Vital Signs 03/18/25 14:26 Height 5 ft 6 in Weight 165 lb BMI 26.6 BP 114/72 Intake Visit Reasons: Nexplanon removal Machine Repair Person: Machine Repair Person Present (Celeste) Accompanied by: Self / Same As Patient Allergies No Known Allergies [No Known Allergies*] Allergy (Verified 03/18/25 14:27) Medication List - Last Reconciled 03/18/25 by Marjorie Montalvo CNM etonogestrel (Nexplanon) subdermal metronidazole 0.75%(37.5mg/5gram) 1 appful vaginal BEDTIME 5 days Post menopausal: No Patient : No HPI HPI Nexplanon removal: Details: Patient is here because she has decided that she wants this current Nexplanon to be removed she has had this before this is not her 1st 1 however she is noticing that she is gaining a lot more weight and also she has decreased libido with the so she wants it removed her plan is to use condoms she and her boyfriend say they both agree and they do not want to have any babies. She is involved in a long-term relationship. She is planning a trip to [place] to visit her mother in March. She is very certain she wants it removed. She very nervous about the procedure she wants to talk to her boyfriend on the phone true that the process and she did some focused breathing the entire time when I distracted her she is talk through things even though she had been heavily breathing as if in labor 2 seconds prior. COUNT INCLUDES THE [facility] Medical History Gastritis Surgical History Hx of appendectomy H/O right wrist surgery Family History Mother No problems noted. Father No problems noted. Sister No problems noted. Maternal Grandfather Cancer Paternal Grandmother Ovarian cancer Social History Household Members: Family Household Members Other:: father, paternal uncle, paternal uncle's spouse Housing: House Do you presently have visiting nurse or other home services: No Alcohol intake: never Comment: sleeping Patient Tobacco Use Status: Never used Tobacco Patient : No service: No Current occupational status: employed Sexual orientation: Straight/Heterosexual Gender identity: Female Female Reproductive History Menstrual Age of Menarche: 15 Total pregnancies: 0 Date of last pap smear: 05/11/23 (negative pap smear) History of abnormal pap smear: No Physical Exam Vital Signs: Last Vital Signs BP 114/72 03/18/25 14:26 BMI result Body Mass Index 26.6 Office Procedures Contraception Insert/Removal Details Details: Nexplanon Removal/ Procedure The patient was placed in a supine position with her non dominant hand resting under her head. The insertion site was located: 8-10cm from the medial epicondyle notch of the humerus, posterior to the sulcus, between the triceps and biceps muscle. The area of the previous implant was identified and the distal tip located. This area was cleansed with an alcohol prep and 3 ml of 2% Lidocaine on a 25 gauge needle and syringe was utilized for adequate anesthesia to the insertion site. After ascertaining adequate anesthesia, the area was prepped with Betadine solution. The skin over the distal tip was incised with a #11 blade scalpel and the capsule was located and entered freeing the implant from the canal. The implant was removed with a gentle tug using a mosquito clamp and removed intact. Direct pressure was applied to the insertion site for hemostasis, minimal bleeding was observed. Steri strips, Tegaderm covering, gauze pads, and Placido wrap dressing were secured with paper tape. The implant was palpable underneath the skin by myself and the patient. The patient tolerated the procedure well and left the office in good condition. [address] - Removal Results AMB Test Urine AMB Test Urine Negative Last Edit by Lennie Titus CMA on 03/18/25 15:33 Assessment & Plan Assessment & Plan (1) Nexplanon in place: Code(s): Z97.5 - Presence of (intrauterine) contraceptive device Category: Social Hx (2) Encounter for Nexplanon removal: Code(s): Z30.46 - Encounter for surveillance of implantable subdermal contraceptive Category: Medical Plan Pair of her arm with the patient she had the Nexplanon removed and replaced in the past so she is familiar with care of the site I recommend keeping the pressure dressing on as long as she can and the Tegaderm on for least 3 days. No heavy lifting and no using that arm in a strenuous way today. Call if any signs or symptoms of infection or other problems.. You would use of condoms for safer sex with the patient and she confirmed with her boyfriend who was on the phone being supportive during the whole procedure. In addition I offered her a prescription for Plan B for just in case a condom broke neither of them plan on having children and he confirmed on the phone that they would be no breakage but just in case I sent a prescription for Plan B. she has not been having sex recently because a decreased libido so I also reviewed the need to be careful with condom use when libido returns we will see her whenever she is scheduled for next appointment. Patient tolerated procedure very well. Orders: Orders AMB Nexplanon/Implanon Insertion - Patient Supply Today Z30.46 - Encounter for surveillance of implantable subdermal contraceptive Medications: New levonorgestrel (Plan B One-Step) 1.5 mg PO ONCE 1 tab 4RF Coding Level of Care Code Est Pt Level 3 (65173) Diagnoses Nexplanon in place Z97.5 Encounter for Nexplanon removal Z30.46 CPT Codes Details - Contraception: 42019 - Removal ([id number])
[2025-03-18 14:26] VITALS: BP 114/72; BMI 26.6
--- OUTSIDE RECORDS SUMMARY | 2025-03-18 15:23 | XMS_ITS | Clinical Summary ---
Author Organization [employer] Address [address] [place] [address] Care Team Providers Care Salad Chef Name Role Phone Unavailable Primary Care Provider [...] Date Last Done Comments Depression Screening 2001 Disability Screening 2001 Alcohol/Substance Use Screening 2013 Tobacco Screening 2013 Family Planning (PISQ) 2016 HPV Vaccines (1 - 3-dose series) 2016 Meningococcal B Vaccine (1 of 2 - Standard) 2017 Pap Smear 2022 SDOH Screening 04/28/2024 04/28/2023 [...] TMA, Urogenitial (03/12/2024 12:00 AM EDT) Pathologist [facility] CT PCR NOT DETECTED Not Detect. [facility] Comment:A not detected test result does [...] psychologicalconsequences. NG PCR NOT DETECTED Not Detect. [facility] Comment:A not detected test result does [...] medical, social or psychologicalconsequences. 03/12/2024 03/12/2024 Narrative [facility] - 03/13/2024 11:[address] [facility] External Data Provider LAB MICROBIOLOGY - GENERAL ORDERABLES Final Result Performing Organization Address [facility] Co de Phone Number [facility] [address] [place] [phone] * Hepatitis C Ab (05/11/2023 1:25 PM EDT) Hepatitis C Antibody Nonreactive Nonreactive [facility] Comment:Antibodies to HCV no t detected; does not exclude early acuteHCV infection. 05/11/2023 1:25 PM EDT 05/11/2023 1:25 PM EDT [facility] External Provider LAB BLO OD ORDERABLES Final Result Performing Organization Address [facility] Co de Phone Number [facility] [address] [place] [address] [phone] * HIV Ab/Ag (FARRUKH ELLIS) (05/11/2023 1:25 PM EDT) HIV AB/AG Nonreactive Nonreactive [facility] Comment:HIV-1 p24 Ag and/or HIV-1/HIV-2 Ab not detected.A test result that is nonreactive does not exclude thepossibility of exposure to or infection with HIV-1 and/orHIV-2. Nonreactive results in this assay for individualswith prior exposure to HIV-1 and/or HIV-2 may be due toantigen and antibody levels that are below the limit ofdetection of this assay.[employer] Photographic Equipment Technician HIV Ag/Ab Combo assay result andsupplemental assay results should be interpreted inconjunction with the patient's clinical presentation,history and other laboratory results. If the results areinconsistent with clinical evidence, additional testing issuggested to confirm the result. 05/11/2023 1:25 PM EDT 05/11/2023 1:25 PM EDT [facility] External Provider LAB BLO OD ORDERABLES Final Result [facility] [address] [place] [phone] from Last 3 Months or Most Recently Relevant to Health Maintenance Insurance [facility] STANDARD HS FULL
== END 2025-03-19 13:34 | disposition home or self-care (01) ==
LOC: HO.HWSM 14:00
PROVIDERS: PCP Family Medicine; Visit Provider Advanced Practice Midwife
DX: Z30.46 Encounter for surveillance of implantable subdermal contraceptive (principal); Z32.02 Encounter for pregnancy test, result negative
CPT/HCPCS: 11982

== ENCOUNTER → 2025-03-18 14:00 | Outpatient (BNVA) | payer BC, SELFPAY | PROVIDERS: PCP Family Medicine; Visit Provider Advanced Practice Midwife | DX: Z30.46 Encounter for surveillance of implantable subdermal contraceptive (principal) | CPT/HCPCS: 11982; 81025 ==